=== PATIENT | female | born 1970 | race Caucasian/White ===

== ENCOUNTER 2018-06-02 14:55 | Emergency (ER) | payer OTHER, SELFPAY ==
[2018-06-02 15:05] VITALS: BP 137/92; PULSE 70; RESP 20; TEMP 36.6; O2SAT 100; BMI 36.6
[2018-06-02 16:00] VITALS: BP 126/65; PULSE 97; O2SAT 94
--- NOTE | 2018-06-02 16:03 | DI.CT.S_ITS ---
PROCEDURE: CT ANGIO HEAD AND NECK INDICATIONS: left sided neck pain with left arm weakness since march TECHNIQUE: Pre-contrast 4.5 mm thick sections acquired from the foramen magnum to the vertex. After the administration of intravenous contrast, 1 mm thick sections acquired from the aortic arch through the [place] of [place]. Post-contrast 4.5 mm thick sections then re-acquired from the foramen magnum to the vertex. 3-dimensional lzjpqnk-ytzcbjjna-zlpfbmgldg (MIP) and/or volume rendering reformats were acquired of the central intracranial vasculature and neck separately. COMPARISON: None. FINDINGS: Image quality: Excellent. BRAIN: CSF spaces: Ventricles are normal in size and shape. Basal cisterns are patent. No extra-axial fluid collections. Brain: No midline shift. No intracranial bleeds or masses. Aponte-white matter interface appears intact. Skull and face: Calvarium and facial bones appear intact, without suspicious lesions. Orbits appear normal. Sinuses: Sinuses and mastoids are clear. HEAD CT ANGIOGRAPHY: Anterior circulation: Intracranial internal carotid arteries are normal in size and flow. The flow within the paired anterior cerebral arteries is normal and symmetric. The flow within the middle cerebral arteries is normal and symmetric. The anterior communicating artery is seen. No aneurysms are seen. Posterior circulation: Visualized portions of the vertebral arteries demonstrate normal caliber, and join to form a normal appearing basilar artery. Flow within the posterior cerebral arteries is normal and symmetric. No aneurysms are seen. NECK CT ANGIOGRAPHY: Carotid system: The great vessels demonstrate a conventional anatomy as they arise from the aortic arch. The origins of the common carotid arteries appear patent. The common carotid arteries demonstrate normal caliber and courses. The bifurcation regions are both widely patent. The internal carotid arteries demonstrate normal calibers and courses. Posterior circulation: The origins of the vertebral arteries both appear widely patent, although there is tortuous appearance of the origin of the left vertebral artery. The more superior extracranial portions of both vertebral arteries also demonstrate normal courses and calibers. They join to form a normal appearing basilar artery. Soft tissues: Visualized neck soft tissues demonstrate no suspicious abnormalities. Bones: No suspicious bony lesions. C5-C7 ACDF incidentally noted. IMPRESSION: No acute intracranial process. No intracranial focal stenosis or occlusion. No ICA stenosis. Any quantitative measurements of stenosis were performed using NASCET criteria. Dictated by: Nitin Harrison M.D. on 06/02/2018 at 16:51 Approved by: Nitin Harrison M.D. on 06/02/2018 at 16:59
--- NOTE | 2018-06-02 16:44 | ED.HA ---
HPI - Headache General Chief Complaint: Headache Stated Complaint: headaches, mulitple complaints Time Seen by Provider: 06/02/18 15:24 Source: patient Mode of arrival: ambulatory Limitations: no limitations History of Present Illness HPI Narrative: Patient is a 48-year-old female presenting with headache. She has a been ongoing since March 28. She was seen by headache specialist today sent over for concern of carotid dissecting aneurysm. She has had no new symptoms today. She has been having left-sided facial numbness some fullness in her left ear numbness tingling down her left arm. She is extremely sensitive to light. She apparently did have an MRI and head CT, however carotids were not addressed in either of those. She has no complaints today but does appear to be uncomfortable. She has no new symptoms. When her pain is significantly increased she gets an upset stomach and extremely nauseated. She has been having a decreased appetite. She is followed by Neurology as outpatient they are trying to adjust her medications. Related Data Home Medications Medication Instructions Recorded Confirmed amitriptyline 10 mg PO DAILY 06/02/18 06/02/18 atorvastatin 40 mg tablet 40 mg PO DAILY 06/02/18 06/02/18 citalopram 20 mg PO DAILY 06/02/18 06/02/18 duloxetine 60 mg PO DAILY 06/02/18 06/02/18 duloxetine 40 mg capsule,delayed 40 mg PO DAILY 06/02/18 06/02/18 release Allergies Allergy/AdvReac Type Severity Reaction Status Date / Time No Known Drug Allergies Allergy Verified 06/02/18 13:49 Review of Systems Review of Systems GENERAL: Denies chills, fatigue, malaise, fever, sweats, travel HEENT: + left-sided neck pain + extremely sensitive to light Denies sinus pain, ear pain, sore throat, difficulty swallowing, RESPIRATORY: Denies dyspnea, cough, wheezing, hemoptysis, sputum. CARDIOVASCULAR: Denies chest pain, palpitations, orthopnea, edema GASTROINTESTINAL: Denies nausea, vomiting, abdominal pain, diarrhea, constipation, melena. : Denies dysuria, frequency, incontinence, hematuria, urinary retention, flank pain. MUSCULOSKELETAL: Denies weakness, joint pain, or bony pain SKIN: No rash, no erythema, no pruritus NEUROLOGIC: See HPI PSYCHIATRIC: No concerning psychosocial issues. 12 point review of systems is negative except for those stated above and HPI PFSH Social History Smoking Status: Former smoker Exam Initial Vital Signs Initial Vital Signs: Vital Signs Temperature 98 F 06/02/18 15:05 Pulse Rate 70 06/02/18 15:05 Respiratory Rate 20 06/02/18 15:05 Blood Pressure 137/92 H 06/02/18 15:05 Pulse Oximetry 100 06/02/18 15:05 GENERAL: [Well-appearing, well-nourished] and in [no acute] distress. HEENT: Head atraumatic,EOMI, pupils reactive, face appears symmetric to me possibly some mild nasal labial flattening, tender to touch left side of neck no bounding pulses or bruits, mild left forehead weakness CARDIOVASCULAR: Regular rate and rhythm without murmurs, rubs or gallops. RESPIRATORY: Breath sounds equal bilaterally, no wheezes rales or rhonchi. ABDOMEN: Soft, nontender. Normoactive bowel sounds all 4 quadrants. No guarding or rebound. EXTREMITIES: Normal range of motion, no clubbing or edema. Neurovascularly intact NEUROLOGICAL: Alert and oriented x4. Speech is fluent. Cranial nerves II through XII grossly intact. [employer] strength equal bilaterally ambulatory gait normal SKIN: Warm, dry, no laceration, no petechiae, no rashes or lesions. Course Orders Ordered: ED Orders 06/02/18 16:03 CT angio head and neck Stat 06/02/18 16:23 Basic Metabolic Panel Stat Complete Blood Count AUTO DIFF Stat Vital Signs - 8 hr 06/02/18 15:05 06/02/18 16:00 06/02/18 17:26 Temperature 98 F Pulse Rate 70 97 H 71 Respiratory Rate 20 20 Blood Pressure 137/92 H 136/79 Blood Pressure [Right Arm] 126/65 Pulse Oximetry 100 94 99 MDM - Headache Lab Data Attestation: I reviewed the patient's lab results. Result diagrams: 06/02/18 16:23 06/02/18 16:23 Lab Results 06/02/18 06/02/18 Range/Units 16:23 16:23 WBC 5.8 (4.5-11.0) X10^3/uL RBC 5.96 H (4.0-5.2) X10^6/uL Hgb 13.1 (12.0-16.0) g/dL Hct 40.9 (36-46) % MCV 68.6 L (80-100) fL MCH 22.0 L (26-34) PG MCHC 32.1 (30-36) % RDW 15.6 H (11.6-14.8) % Plt Count 221 (150-400) X10^3/uL Neut % (Auto) 61.6 (50-75) % Lymph % (Auto) 29.0 (25-40) % Hale % (Auto) 7.3 (3-14) % Eos % (Auto) 1.6 L (2-4) % Baso % (Auto) 0.5 (0-2) % Neut # (Auto) 3600 (7197-0835) /uL RBC Morphology See below Poikilocytosis 1+ H Microcytosis 1+ H Ovalocytes 1+ H Sodium 143 (137-145) mmol/L Potassium 3.6 (3.4-5.1) mmol/L Chloride 104 (98-107) mmol/L Carbon Dioxide 27 (22-32) mmol/L BUN 16 (7-17) mg/dL Creatinine 0.70 (0.52-1.04) mg/dL Estimated GFR > 60.0 (>60) mL/min BUN/Creatinine Ratio 22.9 H (6-22) Glucose 79 (70-100) mg/dL Calcium 9.6 (8.4-10.2) mg/dL Imaging Data CTA Head and neck: Radiologist's impression: PROCEDURE: CT ANGIO HEAD AND NECK INDICATIONS: left sided neck pain with left arm weakness since march TECHNIQUE: Pre-contrast 4.5 mm thick sections acquired from the foramen magnum to the vertex. After the administration of intravenous contrast, 1 mm thick sections acquired from the aortic arch through the [place] of [place]. Post-contrast 4.5 mm thick sections then re-acquired from the foramen magnum to the vertex. 3-dimensional vhvfeve-xnhkmafdq-hkqwzehprd (MIP) and/or volume rendering reformats were acquired of the central intracranial vasculature and neck separately. COMPARISON: None. FINDINGS: Image quality: Excellent. BRAIN: CSF spaces: Ventricles are normal in size and shape. Basal cisterns are patent. No extra-axial fluid collections. Brain: No midline shift. No intracranial bleeds or masses. Aponte-white matter interface appears intact. Skull and face: Calvarium and facial bones appear intact, without suspicious lesions. Orbits appear normal. Sinuses: Sinuses and mastoids are clear. HEAD CT ANGIOGRAPHY: Anterior circulation: Intracranial internal carotid arteries are normal in size and flow. The flow within the paired anterior cerebral arteries is normal and symmetric. The flow within the middle cerebral arteries is normal and symmetric. The anterior communicating artery is seen. No aneurysms are seen. Posterior circulation: Visualized portions of the vertebral arteries demonstrate normal caliber, and join to form a normal appearing basilar artery. Flow within the posterior cerebral arteries is normal and symmetric. No aneurysms are seen. NECK CT ANGIOGRAPHY: Carotid system: The great vessels demonstrate a conventional anatomy as they arise from the aortic arch. The origins of the common carotid arteries appear patent. The common carotid arteries demonstrate normal caliber and courses. The bifurcation regions are both widely patent. The internal carotid arteries demonstrate normal calibers and courses. Posterior circulation: The origins of the vertebral arteries both appear widely patent, although there is tortuous appearance of the origin of the left vertebral artery. The more superior extracranial portions of both vertebral arteries also demonstrate normal courses and calibers. They join to form a normal appearing basilar artery. Soft tissues: Visualized neck soft tissues demonstrate no suspicious abnormalities. Bones: No suspicious bony lesions. C5-C7 ACDF incidentally noted. IMPRESSION: No acute intracranial process. No intracranial focal stenosis or occlusion. No ICA stenosis. Any quantitative measurements of stenosis were performed using NASCET criteria. Dictated by: Nitin Harrison M.D. on 06/02/2018 at 16:51 MDM Narrative Medical decision making narrative: Patient has been having chronic ongoing headache since March 28 without any new symptoms. She has outpatient headache management and Neurology following her. At this time she has a negative CTA and no new neurologic symptoms. I discussed all findings with the patient and spouse, Education has been performed regarding treatment plan, diagnosis, warning signs and symptoms and all concerns have been addressed. Verbally agree with and understood all of the above. Discharge Plan Departure Patient Disposition: Home Clinical Impression: Headache Discharge Date/Time: 06/02/18 17:26 Interventions: ED Discharge Assessment Last Done: 06/02/18 17:26 Instructions: DI for Headache Activity Restrictions/Additional Instructions: *You have been diagnosed with headache *What to do: Head CT today is negative. The arteries in her neck appear normal. *Continue to take medications as directed *Follow up with your primary care provider in 2-3 days, continue to follow up at the headache clinic *Return to ER if you should have change in headache symptoms, weakness, persistent vomiting or any new, worsening or concerning symptoms Prescriptions: No Action citalopram 20 mg tablet 20 mg PO DAILY RF: 0 amitriptyline 10 mg tablet 10 mg PO DAILY RF: 0 duloxetine 60 mg capsule,delayed release(DR/EC) 60 mg PO DAILY RF: 0 atorvastatin 40 mg tablet 40 mg PO DAILY RF: 0 duloxetine 40 mg capsule,delayed release(DR/EC) 40 mg PO DAILY RF: 0 Referrals: Brandon Holland MD [Physician] -
[2018-06-02 16:58] LABS: Add Manual Diff / Slide Review NO; Basophils Percent Auto 0.5 % (0-2); Eosinophils Percent Auto 1.6 % (2-4); Hematocrit 40.9 % (36-46); Hemoglobin 13.1 g/dL (12.0-16.0); Mean Corpuscular HGB Conc 32.1 % (30-36); Mean Corpuscular Volume 68.6 fL (80-100); Monocytes Percent Auto 7.3 % (3-14); Neutrophils Absolute Auto 3600 /uL (3000-5900); Neutrophils Percent Auto 61.6 % (50-75); Platelet Count 221 X10^3/uL (150-400); Red Blood Cell Count 5.96 X10^6/uL (4.0-5.2); Red Cell Distribution Width 15.6 % (11.6-14.8); White Blood Cell Count 5.8 X10^3/uL (4.5-11.0)
[2018-06-02 17:05] LABS: BUN Creatinine Ratio 22.9 (6-22); Blood Urea Nitrogen 16 mg/dL (7-17); Calcium 9.6 mg/dL (8.4-10.2); Carbon Dioxide 27 mmol/L (22-32); Chloride 104 mmol/L (98-107); Estimated Glomerular Filt Rate > 60.0 mL/min (>60); Glucose 79 mg/dL (70-100); HEMOLYSIS < 15 (0-50); Potassium 3.6 mmol/L (3.4-5.1); Sodium 143 mmol/L (137-145)
[2018-06-02 17:24] LABS: Microcytosis 1+; Ovalocytes 1+; Poikilocytosis 1+
[2018-06-02 17:26] VITALS: BP 136/79; PULSE 71; RESP 20; O2SAT 99
== END 2018-06-02 17:26 | disposition home or self-care (01) ==
PROVIDERS: Emergency Provider Emergency Medicine
DX: R51 Headache (principal)
CPT/HCPCS: 36591; 70496; 70498; 80048; 85025; 99282; 99284; Q9967